=== PATIENT | female | born 1950 | race Caucasian/White ===

== ENCOUNTER 2017-12-30 10:52 | Inpatient (IN) | payer MEDICARE, OTHER ==
[2017-12-30 11:19] VITALS: BMI 22.6
--- NOTE | 2017-12-30 13:17 | HP ---
COWS - Scale Resting Pulse: 1= [place] 81-100 Sweatin= Chills/Flushing Restless Observation: 3= Extraneous Movement Pupil Size: 1= Pupils >than Normal Bone or Joint Aches: 2= Severe Diffuse Aches Runny Nose/ Eye Tearin= Runny Nose/Eyes GI Upset > 30mins: 2= Nausea/Diarrhea Tremor Observation: 2= Slight Tremor Visible Yawning Observation: 1= 1-2x During Session Anxiety or Irritability: 2=Irritable/Anxious Goose Flesh Skin: 0=Smooth Skin COWS Score: 17 Admission ROS S - HPI Chief Complaint: i need help to stop using heroin Allergies/Adverse Reactions: Allergies Allergy/AdvReac Type Severity Reaction Status Date / Time No Known Allergies Allergy Verified 12/30/17 11:42 History of Present Illness: this 67 years old female with heroin dependence,seeking detox,withdrawal symptom ,last treatment 15 years ago type 2 dm on med depression nicotine dependence no significant period of sobriety need help to stop using heroin Exam Limitations: No Limitations - Ebola screening Have you traveled outside of the country in the last 21 days: No Have you had contact with anyone from an Ebola affected area: No Have you been sick,other than usual withdrawal symptoms: No Do you have a fever: No - Review of Systems Constitutional: Chills, Loss of Appetite, Malaise, Night Sweats, Changes in sleep, Weakness, Unintentional Wgt. Loss EENT: reports: Tearing, Nose Congestion Respiratory: reports: No Symptoms reported Cardiac: reports: No Symptoms Reported GI: reports: Diarrhea, Nausea, Vomiting, Abdominal cramping : reports: No Symptoms Reported Musculoskeletal: reports: Back Pain, Joint Pain, Muscle Pain Integumentary: reports: Dryness Neuro: reports: Headache, Tremors Endocrine: reports: No Symptoms Reported Hematology: reports: No Symptoms Reported Psychiatric: reports: No Sypmtoms Reported, Judgement Intact, Mood/Affect Appropiate, Depressed Patient History - Patient Medical History Hx Anemia: No Hx Asthma: No Hx Chronic Obstructive Pulmonary Disease (COPD): No Hx Cancer: No Hx Cardiac Disorders: No Hx Congestive Heart Failure: No Hx Hypertension: Yes (on med) Hx Hypercholesterolemia: Yes Hx Pacemaker: No HX Cerebrovascular Accident: No Hx Seizures: No Hx Dementia: No Hx Diabetes: Yes (on metformin) Hx Gastrointestinal Disorders: No Hx Liver Disease: No Hx Genitourinary Disorders: No Hx Sexually Transmitted Disorders: No Hx Renal Disease (ESRD): No Hx Thyroid Disease: No Hx Human Immunodeficiency Virus (HIV): No (2002 negative) Hx Hepatitis C: No Hx Depression: No Hx Suicide Attempt: No Hx Bipolar Disorder: No Hx Schizophrenia: No Other Medical History: no suicidalo,no homicidal - Patient Surgical History Past Surgical History: No Hx Neurologic Surgery: No Hx Cataract Extraction: No Hx Cardiac Surgery: No Hx Lung Surgery: No Hx Breast Surgery: No Hx Breast Biopsy: No Hx Abdominal Surgery: No Hx Appendectomy: No Hx Cholecystectomy: No Hx Genitourinary Surgery: No Hx Section: No Hx Orthopedic Surgery: No Anesthesia Reaction: No - PPD History Previous Implant?: Yes Documented Results: Positive w/o proof Implanted On Prior [facility] Admission?: No PPD to be Administered?: No - Reproductive History Patient is a Female of Child Bearing Age (11 -55 yrs old): No Last Menstrual Period: 12/28/91 Patient : No - Smoking Cessation Smoking history: Current every day smoker Have you smoked in the past 12 months: Yes Aproximately how many cigarettes per day: 20 Cigars Per Day: 0 Hx Chewing Tobacco Use: No Initiated information on smoking cessation: Yes 'Breaking Loose' booklet given: 12/30/17 - Substance & Tx. History Hx Alcohol Use: No Hx Substance Use: Yes Substance Use Type: Heroin Hx Substance Use Treatment: Yes (2002 unknown facility) - Substances Abused [facility] Route: Inhalation Frequency: Daily Amount used: 4-5 BAGS Age of first use: 64 Date of Last Use: 12/30/17 Family Disease History - Family Disease History Family History: Denies Family Disease History: Heart Disease: Father (), Other: Father, Mother ( copd) Admission Physical Exam BHS - Vital Signs Vital Signs: Vital Signs - 24 hr 12/30/17 11:17 Temperature 98.5 F Pulse Rate 81 Respiratory 19 Rate Blood Pressure 149/80 - Physical General Appearance: Yes: Moderate Distress, Tremorous, Irritable, Sweating, Anxious HEENTM: Yes: Normal ENT Inspection, SALO, Pharynx Normal Respiratory: Yes: Lungs Clear, Normal Breath Sounds, No Respiratory Distress Neck: Yes: Within Normal Limits, Supple, Trachea in good position Breast: Yes: Breast Exam Deferred Cardiology: Yes: Within Normal Limits, Regular Rhythm, Regular Rate, S1, S2 Abdominal: Yes: Normal Bowel Sounds, Non Tender, Soft, Organomegaly Genitourinary: Yes: Within Normal Limits Back: Yes: Muscle Spasm Extremities: Yes: Within Normal Limits, Normal Range of Motion, Tremors Neurological: Yes: direct care specialist II-XII NML intact, Fully Oriented, Alert, Motor Strength 5/5 Integumentary: Yes: Dry Lymphatic: Yes: Within Normal Limits - Diagnostic (1) Opioid dependence with withdrawal Current Visit: Yes Status: Acute (2) Essential hypertension Current Visit: Yes Status: Acute (3) DM2 (diabetes mellitus, type 2) Current Visit: Yes Status: Acute (4) Nicotine dependence Current Visit: Yes Status: Acute (5) Positive PPD Current Visit: Yes Status: Acute (6) Hypercholesteremia Current Visit: Yes Status: Acute Cleared for Admission [facility] - Detox or Rehab [facility] Level of Care: Medically Managed Detox Regimen/Protocol: Methadone [facility] Breath Alcohol Content Breath Alcohol Content: 0 Urine Pregancy Test - Result Urine Test Results: Negative- NO Line Present Urine Drug Screen - Results Drug Screen Negative: No Urine Drug Screen Results: OPI-Opiates, MTD-Methadone, OXY-Oxycodone
[2017-12-30] MEDS ORDERED: guaiFENesin/D-METHORPHAN HB 10 ML UNIT-DOSE CUPS PO PRN (13:29)
[2017-12-30] MEDS ORDERED: MAGNESIUM CITRATE 300 ML BOTTLE PO PRN (13:29)
[2017-12-30] MEDS ORDERED: hydrOXYzine PAMOATE 25 MG CAPSULE (FP) PO PRN (13:29)
[2017-12-30] MEDS ORDERED: P-EPHED 60MG/TRIPROLIDI 2.5MG TABLET PO PRN (13:29)
[2017-12-30] MEDS ORDERED: LOPERAMIDE HCL 2 MG CAPSULE PO PRN (13:29)
[2017-12-30] MEDS ORDERED: MENTHOL/PHENOL 1 EACH UD MM PRN (13:29)
[2017-12-30] MEDS ORDERED: ACETAMINOPHEN 325 MG TABLET (FP) PO PRN (13:29)
[2017-12-30] MEDS ORDERED: MAG HYDROX/AL HYDROX/SIMETH 30 ML UNIT-DOSE CUP PO PRN (13:29)
[2017-12-30] MEDS ORDERED: METHADONE HCL 10 MG TABLET (FOR DETOX USE ONLY) PO ONE ×2 (14:45→23:00)
[2017-12-30] MEDS: NICOTINE 21 MG/24 HOURS TOPICAL PATCH TD SCH (14:51)
[2017-12-30] MEDS ORDERED: INSULIN (NOVOLOG) ASPART 100 UNITS/ML 10ML VIAL ONE ×2 (17:07→22:03)
[2017-12-30] MEDS: metFORMIN HCL 500 MG TABLET (FP) PO SCH (17:49)
[2017-12-30] MEDS: INSULIN SLIDING SCALE (NOVOLOG) 1 VIAL SQ SCH ×2 (17:50→22:02)
[2017-12-30] MEDS ORDERED: MELATONIN 5 MG TABLETS PO PRN (22:00)
[2017-12-30] MEDS: THIAMINE HCL 100 MG TABLET (FP) PO SCH (22:05)
[2017-12-30] MEDS: ATORVASTATIN CA 10 MG TABLET (FP) PO SCH (22:05)
[2017-12-31] MEDS: diazePAM 5 MG TABLET PO PRN ×2 (05:49→22:35)
[2017-12-31] MEDS: metFORMIN HCL 500 MG TABLET (FP) PO SCH ×2 (06:24→16:39)
[2017-12-31] MEDS: INSULIN SLIDING SCALE (NOVOLOG) 1 VIAL SQ SCH ×4 (08:16→22:36)
[2017-12-31 10:00] LABS: HEMATOCRIT 42.9 % (32.4-45.2); HEMOGLOBIN 14.2 GM/dL (10.7-15.3); MCH 31.1 pg (25.7-33.7); MCHC 33.1 g/dl (32.0-36.0); MEAN CELL VOLUME 93.9 fl (80-96); MEAN PLT VOLUME 10.8 fl (7.5-11.1); PLATELET COUNT 160 K/MM3 (134-434); RBC 4.57 M/mm3 (3.60-5.2); RDW 12.6 % (11.6-15.6); WHITE BLOOD COUNT 6.9 K/mm3 (4.0-10.0)
[2017-12-31] MEDS ORDERED: METHADONE HCL 10 MG TABLET (FOR DETOX USE ONLY) PO ONE (10:00)
[2017-12-31] MEDS: PRENATAL VITAMINS W/ FOLIC ACID TABLET (FP) PO SCH (10:28)
[2017-12-31] MEDS: amLODIPine BESYLATE 10 MG TABLET (FP) PO SCH (10:28)
[2017-12-31] MEDS: LOSARTAN POTASSIUM 50 MG TABLET (FP) PO SCH (10:28)
[2017-12-31] MEDS: NICOTINE 21 MG/24 HOURS TOPICAL PATCH TD SCH (10:29)
[2017-12-31] MEDS: MAGNESIUM HYDROX 2400MG/30ML ORAL SUSPENSION 30 ML CUP PO PRN (10:31)
[2017-12-31 10:50] LABS: ALBUMIN 3.7 g/dl (3.4-5.0); ALK PHOS 107 U/L (45-117); ANION GAP 11 MMOL/L (8-16); BILIRUBIN,TOTAL 0.3 mg/dL (0.2-1); BLOOD UREA NITROGEN 14 mg/dL (7-18); CALCIUM 9.2 mg/dL (8.5-10.1); CHLORIDE 103 mmol/L (98-107); CO2 24 mmol/L (21-32); CREATININE 0.7 mg/dL (0.55-1.3); POTASSIUM 4.4 mmol/L (3.5-5.1); SGOT/AST 14 U/L (15-37); SGPT/ALT 27 U/L (13-61); SODIUM 138 mmol/L (136-145)
[2017-12-31 10:51] LABS: GLUCOSE,RANDOM 312 mg/dL (74-106)
--- NOTE | 2017-12-31 11:44 | EKG ---
Test Reason : Blood Pressure : / mmHG Vent. Rate : 069 BPM Atrial Rate : 069 BPM P-R Int : 158 ms QRS Dur : 080 ms QT Int : 382 ms P-R-T Axes : 063 074 065 degrees QTc Int : 409 ms NORMAL SINUS RHYTHM NORMAL ECG NO PREVIOUS ECGS AVAILABLE Confirmed by KAMLA JAIMES, TAMMY ([id number]) on 12/31/2017 11:44:28 AM Referred By: Confirmed By:TAMMY CASON MD
[2017-12-31] MEDS ORDERED: INSULIN (NOVOLOG) ASPART 100 UNITS/ML 10ML VIAL ONE ×2 (11:52→22:06)
[2017-12-31] MEDS ORDERED: FLU VACCINE QUAD 60 MCG/0.5 ML (MDV 18-19) IM ONE (12:00)
[2017-12-31] MEDS ORDERED: PNEUMOC 13-VAL CONJ-DIP CRM/PF 0.5 ML DISP.SYRIN IM ONE (12:00)
--- NOTE | 2017-12-31 18:36 | PN ---
BHS COWS - Scale Resting Pulse: 0= [place] 80 or Below Sweatin= Chills/Flushing Restless Observation: 1= Difficult to Sit Still Pupil Size: 1= Pupils >than Normal Bone or Joint Aches: 2= Severe Diffuse Aches Runny Nose/ Eye Tearin= Nasal Congestion GI Upset > 30mins: 2= Nausea/Diarrhea Tremor Observation of Outstretched Hands: 1= Tremor [place], Not Seen Yawning Observation: 2= >3x During Session Anxiety or Irritability: 2=Irritable/Anxious Goose Flesh Skin: 0=Smooth Skin COWS Score: 13 S Progress Note (SOAP) Subjective: sweat back pain muscle ache Objective: 12/31/17 18:35 Vital Signs Temperature 99 F 12/31/17 17:34 Pulse Rate 84 12/31/17 17:34 Respiratory Rate 18 12/31/17 17:34 Blood Pressure 100/60 12/31/17 17:34 O2 Sat by Pulse Oximetry (%) Laboratory Last Values WBC 6.9 K/mm3 (4.0-10.0) 12/31/17 05:45 RBC 4.57 M/mm3 (3.60-5.2) 12/31/17 05:45 Hgb 14.2 GM/dL (10.7-15.3) 12/31/17 05:45 Hct 42.9 % (32.4-45.2) 12/31/17 05:45 MCV 93.9 fl (80-96) 12/31/17 05:45 MCH 31.1 pg (25.7-33.7) 12/31/17 05:45 MCHC 33.1 g/dl (32.0-36.0) 12/31/17 05:45 RDW 12.6 % (11.6-15.6) 12/31/17 05:45 Plt Count 160 K/MM3 (134-434) 12/31/17 05:45 MPV 10.8 fl (7.5-11.1) 12/31/17 05:45 Sodium 138 mmol/L (136-145) 12/31/17 05:45 Potassium 4.4 mmol/L (3.5-5.1) 12/31/17 05:45 Chloride 103 mmol/L (98-107) 12/31/17 05:45 Carbon Dioxide 24 mmol/L (21-32) 12/31/17 05:45 Anion Gap 11 MMOL/L (8-16) 12/31/17 05:45 BUN 14 mg/dL (7-18) 12/31/17 05:45 Creatinine 0.7 mg/dL (0.55-1.3) 12/31/17 05:45 Creat Clearance w eGFR > 60 (>60) 12/31/17 05:45 POC Glucometer 397 UNITS (80-120) 12/31/17 11:50 Random Glucose 312 mg/dL (74-106) H* 12/31/17 05:45 Calcium 9.2 mg/dL (8.5-10.1) 12/31/17 05:45 Total Bilirubin 0.3 mg/dL (0.2-1) 12/31/17 05:45 AST 14 U/L (15-37) L 12/31/17 05:45 ALT 27 U/L (13-61) 12/31/17 05:45 Alkaline Phosphatase 107 U/L (45-117) 12/31/17 05:45 Total Protein 7.0 g/dl (6.4-8.2) 12/31/17 05:45 Albumin 3.7 g/dl (3.4-5.0) 12/31/17 05:45 RPR Titer Nonreactive (NONREACTIVE) 12/31/17 05:45 lab noted diabetes Assessment: 12/31/17 18:35 withdrawal sx Plan: continue detox bgm with insulin coverage
[2017-12-31] MEDS: ATORVASTATIN CA 10 MG TABLET (FP) PO SCH (22:35)
[2017-12-31] MEDS: THIAMINE HCL 100 MG TABLET (FP) PO SCH (22:35)
[2018-01-01] MEDS ORDERED: INSULIN (NOVOLOG) ASPART 100 UNITS/ML 10ML VIAL ONE ×4 (06:19→22:28)
[2018-01-01] MEDS: metFORMIN HCL 500 MG TABLET (FP) PO SCH ×2 (06:20→16:59)
[2018-01-01] MEDS: diazePAM 5 MG TABLET PO PRN ×3 (06:20→22:23)
[2018-01-01] MEDS: INSULIN SLIDING SCALE (NOVOLOG) 1 VIAL SQ SCH ×4 (07:20→22:29)
[2018-01-01] MEDS ORDERED: METHADONE HCL 5 MG TABLET (FOR DETOX USE ONLY) PO ONE (10:00)
[2018-01-01] MEDS: PRENATAL VITAMINS W/ FOLIC ACID TABLET (FP) PO SCH (10:13)
[2018-01-01] MEDS: LOSARTAN POTASSIUM 50 MG TABLET (FP) PO SCH (10:13)
[2018-01-01] MEDS: amLODIPine BESYLATE 10 MG TABLET (FP) PO SCH (10:14)
[2018-01-01] MEDS: MAGNESIUM HYDROX 2400MG/30ML ORAL SUSPENSION 30 ML CUP PO PRN (10:17)
[2018-01-01] MEDS: NICOTINE 21 MG/24 HOURS TOPICAL PATCH TD SCH (10:17)
--- NOTE | 2018-01-01 11:17 | PN ---
BHS COWS - Scale Resting Pulse: 1= [place] 81-100 Sweatin= Chills/Flushing Restless Observation: 1= Difficult to Sit Still Pupil Size: 0= Normal to Room Light Bone or Joint Aches: 1= Mild Discomfort Runny Nose/ Eye Tearin= Runny Nose/Eyes GI Upset > 30mins: 1= Stomach Cramp Tremor Observation of Outstretched Hands: 1= Tremor [place], Not Seen Yawning Observation: 2= >3x During Session Anxiety or Irritability: 2=Irritable/Anxious Goose Flesh Skin: 0=Smooth Skin COWS Score: 12 BHS Progress Note (SOAP) Subjective: c/o interrupted sleep, fatigue, anxious Objective: 01/01/18 11:17 Vital Signs Temperature 98.8 F 01/01/18 09:15 Pulse Rate 85 01/01/18 09:15 Respiratory Rate 18 01/01/18 09:15 Blood Pressure 117/59 L 01/01/18 09:15 O2 Sat by Pulse Oximetry (%) Laboratory Last Values WBC 6.9 K/mm3 (4.0-10.0) 12/31/17 05:45 RBC 4.57 M/mm3 (3.60-5.2) 12/31/17 05:45 Hgb 14.2 GM/dL (10.7-15.3) 12/31/17 05:45 Hct 42.9 % (32.4-45.2) 12/31/17 05:45 MCV 93.9 fl (80-96) 12/31/17 05:45 MCH 31.1 pg (25.7-33.7) 12/31/17 05:45 MCHC 33.1 g/dl (32.0-36.0) 12/31/17 05:45 RDW 12.6 % (11.6-15.6) 12/31/17 05:45 Plt Count 160 K/MM3 (134-434) 12/31/17 05:45 MPV 10.8 fl (7.5-11.1) 12/31/17 05:45 Sodium 138 mmol/L (136-145) 12/31/17 05:45 Potassium 4.4 mmol/L (3.5-5.1) 12/31/17 05:45 Chloride 103 mmol/L (98-107) 12/31/17 05:45 Carbon Dioxide 24 mmol/L (21-32) 12/31/17 05:45 Anion Gap 11 MMOL/L (8-16) 12/31/17 05:45 BUN 14 mg/dL (7-18) 12/31/17 05:45 Creatinine 0.7 mg/dL (0.55-1.3) 12/31/17 05:45 Creat Clearance w eGFR > 60 (>60) 12/31/17 05:45 POC Glucometer 163 UNITS (80-120) 01/01/18 06:16 Random Glucose 312 mg/dL (74-106) H* 12/31/17 05:45 Calcium 9.2 mg/dL (8.5-10.1) 12/31/17 05:45 Total Bilirubin 0.3 mg/dL (0.2-1) 12/31/17 05:45 AST 14 U/L (15-37) L 12/31/17 05:45 ALT 27 U/L (13-61) 12/31/17 05:45 Alkaline Phosphatase 107 U/L (45-117) 12/31/17 05:45 Total Protein 7.0 g/dl (6.4-8.2) 12/31/17 05:45 Albumin 3.7 g/dl (3.4-5.0) 12/31/17 05:45 RPR Titer Nonreactive (NONREACTIVE) 12/31/17 05:45 Aox3 no distress no adventitious breath sounds ambulating in the unit independently Assessment: 01/01/18 14:31 withdrawal sx Plan: increase po fluids continue detox continue to monitor
[2018-01-01] MEDS: THIAMINE HCL 100 MG TABLET (FP) PO SCH (22:23)
[2018-01-01] MEDS: ATORVASTATIN CA 10 MG TABLET (FP) PO SCH (22:23)
[2018-01-02] MEDS: diazePAM 5 MG TABLET PO PRN (05:16)
[2018-01-02] MEDS: IBUPROFEN 400 MG TABLET (FP) PO PRN (05:17)
[2018-01-02] MEDS: metFORMIN HCL 500 MG TABLET (FP) PO SCH ×2 (06:15→16:49)
[2018-01-02] MEDS: INSULIN SLIDING SCALE (NOVOLOG) 1 VIAL SQ SCH ×4 (07:15→22:10)
[2018-01-02] MEDS ORDERED: METHADONE HCL 5 MG TABLET (FOR DETOX USE ONLY) PO ONE (10:00)
[2018-01-02] MEDS: LOSARTAN POTASSIUM 50 MG TABLET (FP) PO SCH (10:37)
[2018-01-02] MEDS: amLODIPine BESYLATE 10 MG TABLET (FP) PO SCH (10:37)
[2018-01-02] MEDS: PRENATAL VITAMINS W/ FOLIC ACID TABLET (FP) PO SCH (10:37)
[2018-01-02] MEDS: NICOTINE 21 MG/24 HOURS TOPICAL PATCH TD SCH (10:39)
[2018-01-02] MEDS ORDERED: INSULIN (NOVOLOG) ASPART 100 UNITS/ML 10ML VIAL ONE ×3 (11:51→22:47)
--- NOTE | 2018-01-02 12:07 | PN ---
BHS Progress Note (SOAP) Subjective: back pain sweats Objective: 01/02/18 12:06 Vital Signs Temperature 97.7 F 01/02/18 09:34 Pulse Rate 83 01/02/18 09:34 Respiratory Rate 18 01/02/18 09:34 Blood Pressure 123/56 L 01/02/18 09:34 O2 Sat by Pulse Oximetry (%) aaox3 ambulating no acute distress Assessment: 01/02/18 12:06 mild withdrawal sx Plan: continue detox d/c in am rx for motrin sent to pharmacy
[2018-01-02] MEDS: ATORVASTATIN CA 10 MG TABLET (FP) PO SCH (22:08)
[2018-01-02] MEDS: THIAMINE HCL 100 MG TABLET (FP) PO SCH (22:08)
[2018-01-02 22:53] VITALS: TEMP 98.1
[2018-01-03] MEDS: metFORMIN HCL 500 MG TABLET (FP) PO SCH (06:03)
[2018-01-03] MEDS ORDERED: INSULIN (NOVOLOG) ASPART 100 UNITS/ML 10ML VIAL ONE (07:19)
[2018-01-03] MEDS: IBUPROFEN 400 MG TABLET (FP) PO PRN (07:30)
[2018-01-03] MEDS: INSULIN SLIDING SCALE (NOVOLOG) 1 VIAL SQ SCH (07:32)
[2018-01-03 07:37] VITALS: BP 111/70; PULSE 89
--- NOTE | 2018-01-03 09:05 | DS ---
[facility] Detox Discharge Summary Admission Date: 12/30/17 Discharge Date: 01/03/18 - History Present History: Opioid Dependence Additional Comments: Patient medically stable. Patient to follow up with primary medical provider within a week. Patient - Physical Exam Results Vital Signs: Vital Signs Temperature 98.1 F 01/03/18 07:36 Pulse Rate 89 01/03/18 07:36 Respiratory Rate 18 01/03/18 07:36 Blood Pressure 111/70 01/03/18 07:36 O2 Sat by Pulse Oximetry (%) Pertinent Admission Physical Exam Findings: Laboratory Last Values WBC 6.9 K/mm3 (4.0-10.0) 12/31/17 05:45 RBC 4.57 M/mm3 (3.60-5.2) 12/31/17 05:45 Hgb 14.2 GM/dL (10.7-15.3) 12/31/17 05:45 Hct 42.9 % (32.4-45.2) 12/31/17 05:45 MCV 93.9 fl (80-96) 12/31/17 05:45 MCH 31.1 pg (25.7-33.7) 12/31/17 05:45 MCHC 33.1 g/dl (32.0-36.0) 12/31/17 05:45 RDW 12.6 % (11.6-15.6) 12/31/17 05:45 Plt Count 160 K/MM3 (134-434) 12/31/17 05:45 MPV 10.8 fl (7.5-11.1) 12/31/17 05:45 Sodium 138 mmol/L (136-145) 12/31/17 05:45 Potassium 4.4 mmol/L (3.5-5.1) 12/31/17 05:45 Chloride 103 mmol/L (98-107) 12/31/17 05:45 Carbon Dioxide 24 mmol/L (21-32) 12/31/17 05:45 Anion Gap 11 MMOL/L (8-16) 12/31/17 05:45 BUN 14 mg/dL (7-18) 12/31/17 05:45 Creatinine 0.7 mg/dL (0.55-1.3) 12/31/17 05:45 Creat Clearance w eGFR > 60 (>60) 12/31/17 05:45 POC Glucometer 256 UNITS (80-120) 01/03/18 06:02 Random Glucose 312 mg/dL (74-106) H* 12/31/17 05:45 Calcium 9.2 mg/dL (8.5-10.1) 12/31/17 05:45 Total Bilirubin 0.3 mg/dL (0.2-1) 12/31/17 05:45 AST 14 U/L (15-37) L 12/31/17 05:45 ALT 27 U/L (13-61) 12/31/17 05:45 Alkaline Phosphatase 107 U/L (45-117) 12/31/17 05:45 Total Protein 7.0 g/dl (6.4-8.2) 12/31/17 05:45 Albumin 3.7 g/dl (3.4-5.0) 12/31/17 05:45 RPR Titer Nonreactive (NONREACTIVE) 12/31/17 05:45 - Treatment Hospital Course: Detox Protocol Followed, Detoxed Safely, Responded well, Discharged Condition Good, Rehab Referral Accepted Patient has Accepted a Rehab Referral to: out patient services - Medication Discharge Medications: Ambulatory Orders Amlodipine Besylate 10 mg PO DAILY 12/30/17 Losartan Potassium 100 mg PO DAILY 12/30/17 Simvastatin 10 mg PO DAILY 12/30/17 metFORMIN HCL [Metformin HCl] 500 mg PO BID 12/30/17 Fenoprofen Calcium [Profeno] 600 mg PO PRN #30 tablet 01/02/18 Amlodipine Besylate [Norvasc -] 10 mg PO DAILY #30 tablet 01/03/18 Losartan Potassium [Cozaar -] 100 mg PO DAILY #30 tablet 01/03/18 metFORMIN HCL [Glucophage -] 500 mg PO BID@0700,1630 #30 tablet 01/03/18 - Diagnosis (1) DM2 (diabetes mellitus, type 2) Current Visit: Yes Status: Chronic Qualifiers: Diabetes mellitus care 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
[2018-01-03] MEDS ORDERED: METHADONE HCL 10 MG TABLET (FOR DETOX USE ONLY) PO ONE (10:00)
[2018-01-03 11:22] LABS: URINE APPEARANCE CLEAR; URINE BILIRUBIN NEGATIVE (<2.0 mg/dL); URINE COLOR STRAW; URINE GLUCOSE (UA) 1+ (NEGATIVE); URINE KETONE NEGATIVE (NEGATIVE); URINE LEUK ESTERASE NEGATIVE (NEGATIVE); URINE NITRITE NEGATIVE (NEGATIVE); URINE PROTEIN NEGATIVE (NEGATIVE); URINE UROBILINOGEN NEGATIVE mg/dL (0.2-1.0)
[2018-01-04] MEDS ORDERED: METHADONE HCL 5 MG TABLET (FOR DETOX USE ONLY) PO ONE (06:00)
== END 2018-01-03 09:10 | disposition home or self-care (01) | DRG 897 ==
LOC: YASAS 10:52 → Y6N 13:49
PROC: HZ2ZZZZ Detoxification Services for Substance Abuse Treatment (ICD-10-PCS; principal; 2017-12-30)
DX: F11.23 Opioid dependence with withdrawal (principal); F17.210 Nicotine dependence, cigarettes, uncomplicated; I10 Essential (primary) hypertension; E11.9 Type 2 diabetes mellitus without complications; E78.00 Pure hypercholesterolemia, unspecified; R76.11 Nonspecific reaction to tuberculin skin test without active tuberculosis
CPT/HCPCS: 36415; 71046-TC-FY; 80053; 81003; 82962; 85027; 86593; 90688; 93005; 93010; G0008

== ENCOUNTER 2022-01-01 13:34 | Inpatient (IN) | payer MEDICARE, OTHER ==
[2022-01-01 15:27] VITALS: BMI 27.0
[2022-01-01] MEDS ORDERED: BISMUTH SUBSALICYLATE 524 MG/30 ML PO PRN (15:53)
[2022-01-01] MEDS ORDERED: ACETAMINOPHEN 325 MG TABLET (FP) PO PRN ×2 (15:53)
[2022-01-01] MEDS ORDERED: DICYCLOMINE HCL 10 MG CAPSULE PO PRN (15:53)
[2022-01-01] MEDS ORDERED: LOPERAMIDE HCL 2 MG CAPSULE PO PRN (15:53)
[2022-01-01] MEDS ORDERED: MAG HYDROX/AL HYDROX/SIMETH 30 ML UNIT-DOSE CUP PO PRN (15:53)
[2022-01-01] MEDS ORDERED: NALOXONE HCL (KLOXXADO) 8 MG SPRAY NS PRN (15:53)
[2022-01-01] MEDS ORDERED: IBUPROFEN 400 MG TABLET (FP) PO PRN (15:53)
[2022-01-01] MEDS ORDERED: BUPRENORPHINE HCL 150 MCG, BUPRENORPHINE HCL 75 MCG BC ONE (15:53)
[2022-01-01] MEDS ORDERED: BUPRENORPHINE HCL 150 MCG, BUPRENORPHINE HCL 75 MCG BC PRN (15:53)
[2022-01-01] MEDS ORDERED: BENZOCAINE/MENTHOL (CHLORASEPTIC ) LOZENGE MM PRN (15:53)
[2022-01-01] MEDS ORDERED: cloNIDine HCL 0.1 MG TABLET PO ONE (15:53)
[2022-01-01] MEDS ORDERED: MAGNESIUM CITRATE 300 ML BOTTLE PO PRN (15:53)
[2022-01-01] MEDS ORDERED: ONDANSETRON *ODT* 4 MG TABLET SL PRN (15:53)
[2022-01-01] MEDS ORDERED: NICOTINE 10 MG CARTRIDGE (INHALER) IH PRN (15:53)
[2022-01-01] MEDS: PRENATAL VITAMINS W/ FOLIC ACID TABLET (FP) PO SCH (17:18)
[2022-01-01] MEDS: hydrOXYzine PAMOATE 25 MG CAPSULE (FP) PO SCH ×2 (18:24→22:31)
[2022-01-01] MEDS: MELATONIN 5 MG TABLETS PO SCH (22:31)
[2022-01-01] MEDS: ROSUVASTATIN CA 10 MG TABLET PO SCH (22:31)
[2022-01-01] MEDS: THIAMINE HCL 100 MG TABLET (FP) PO SCH (22:31)
[2022-01-02] MEDS ORDERED: BUPRENORPHINE HCL 150 MCG, BUPRENORPHINE HCL 75 MCG BC PRN
[2022-01-02] MEDS: BUPRENORPHINE HCL 150 MCG, BUPRENORPHINE HCL 75 MCG BC SCH ×2 (05:15→18:34)
[2022-01-02] MEDS: hydrOXYzine PAMOATE 25 MG CAPSULE (FP) PO SCH ×5 (05:16→22:18)
[2022-01-02] MEDS: metFORMIN HCL 500 MG TABLET (FP) PO SCH ×2 (07:05→17:35)
[2022-01-02] MEDS: diazePAM 5 MG TABLET PO PRN (10:10)
[2022-01-02] MEDS: NICOTINE 14 MG/24 HOURS TOPICAL PATCH TD SCH (10:11)
[2022-01-02] MEDS: PRENATAL VITAMINS W/ FOLIC ACID TABLET (FP) PO SCH (10:12)
[2022-01-02] MEDS: amLODIPine BESYLATE 5 MG TABLET (FP) PO SCH (10:12)
[2022-01-02] MEDS: MAGNESIUM HYDROX 2400MG/30ML ORAL SUSPENSION 30 ML CUP PO PRN (10:13)
[2022-01-02 10:41] LABS: HEMATOCRIT 34.9 % (32.4-45.2); HEMOGLOBIN 11.8 GM/dL (10.7-15.3); MCH 31.7 pg (25.7-33.7); MCHC 33.9 g/dl (32.0-36.0); MEAN CELL VOLUME 93.6 fl (80-96); MEAN PLT VOLUME 9.9 fl (7.5-11.1); PLATELET COUNT 177 10^3/uL (134-434); RBC 3.73 M/mm3 (3.60-5.2); RDW 13.1 % (11.6-15.6); WHITE BLOOD COUNT 5.7 K/mm3 (4.0-10.0)
[2022-01-02 10:42] LABS: BLOOD UREA NITROGEN 11.7 mg/dL (7-18); CALCIUM 9.4 mg/dL (8.5-10.1)
[2022-01-02 10:46] LABS: CREATININE 0.6 mg/dL (0.55-1.3)
[2022-01-02 10:47] LABS: BILIRUBIN,TOTAL 0.2 mg/dL (0.2-1); TOT PROT 6.1 g/dl (6.4-8.2)
[2022-01-02] MEDS ORDERED: INSULIN SLIDING SCALE (NOVOLOG) 1 VIAL SQ SCH (11:00)
[2022-01-02] MEDS: INSULIN SLIDING SCALE (NOVOLOG) 1 VIAL SQ SCH ×2 (12:45→17:35)
[2022-01-02] MEDS: IBUPROFEN 600 MG TABLET (FP) PO PRN (12:53)
[2022-01-02] MEDS: METHOCARBAMOL 500 MG TABLET PO PRN ×2 (12:53→22:17)
[2022-01-02] MEDS: ROSUVASTATIN CA 10 MG TABLET PO SCH (22:16)
[2022-01-02] MEDS: THIAMINE HCL 100 MG TABLET (FP) PO SCH (22:16)
[2022-01-02] MEDS: MELATONIN 5 MG TABLETS PO SCH (22:16)
[2022-01-03] MEDS: metFORMIN HCL 500 MG TABLET (FP) PO SCH ×2 (06:05→17:49)
[2022-01-03] MEDS: BUPRENORPHINE HCL 450 MCG FILM BC SCH ×2 (06:05→17:50)
[2022-01-03] MEDS: hydrOXYzine PAMOATE 25 MG CAPSULE (FP) PO SCH ×5 (06:05→22:16)
[2022-01-03] MEDS: INSULIN SLIDING SCALE (NOVOLOG) 1 VIAL SQ SCH ×3 (06:07→17:51)
[2022-01-03] MEDS: amLODIPine BESYLATE 5 MG TABLET (FP) PO SCH (09:55)
[2022-01-03] MEDS: PRENATAL VITAMINS W/ FOLIC ACID TABLET (FP) PO SCH (09:55)
[2022-01-03] MEDS: diazePAM 5 MG TABLET PO PRN (09:55)
[2022-01-03] MEDS: METHOCARBAMOL 500 MG TABLET PO PRN ×2 (09:56→22:18)
[2022-01-03] MEDS: NICOTINE 14 MG/24 HOURS TOPICAL PATCH TD SCH (10:20)
[2022-01-03] MEDS: cloNIDine HCL 0.1 MG TABLET PO PRN (13:45)
[2022-01-03 18:28] LABS: HIV INTERPRETATION NEGATIVE (NEGATIVE)
[2022-01-03] MEDS: THIAMINE HCL 100 MG TABLET (FP) PO SCH (22:16)
[2022-01-03] MEDS: ROSUVASTATIN CA 10 MG TABLET PO SCH (22:16)
[2022-01-03] MEDS: MELATONIN 5 MG TABLETS PO SCH (22:16)
[2022-01-03] MEDS: MAGNESIUM HYDROX 2400MG/30ML ORAL SUSPENSION 30 ML CUP PO PRN (22:19)
[2022-01-04] MEDS: BUPRENORPHINE/NALOXONE 4 MG/1 MG FILM PACKET SL SCH ×2 (06:52→17:57)
[2022-01-04] MEDS: metFORMIN HCL 500 MG TABLET (FP) PO SCH ×2 (06:53→17:56)
[2022-01-04] MEDS: hydrOXYzine PAMOATE 25 MG CAPSULE (FP) PO SCH ×5 (06:53→22:17)
[2022-01-04] MEDS: cloNIDine HCL 0.1 MG TABLET PO PRN ×2 (07:53→14:26)
[2022-01-04] MEDS: METHOCARBAMOL 500 MG TABLET PO PRN (07:53)
[2022-01-04] MEDS: IBUPROFEN 600 MG TABLET (FP) PO PRN (07:53)
[2022-01-04] MEDS: INSULIN SLIDING SCALE (NOVOLOG) 1 VIAL SQ SCH ×3 (07:54→17:55)
[2022-01-04] MEDS: PRENATAL VITAMINS W/ FOLIC ACID TABLET (FP) PO SCH (10:27)
[2022-01-04] MEDS: diazePAM 5 MG TABLET PO PRN ×3 (10:27→22:19)
[2022-01-04] MEDS: amLODIPine BESYLATE 5 MG TABLET (FP) PO SCH (10:27)
[2022-01-04] MEDS: NICOTINE 14 MG/24 HOURS TOPICAL PATCH TD SCH (10:50)
[2022-01-04] MEDS: MELATONIN 5 MG TABLETS PO SCH (22:17)
[2022-01-04] MEDS: THIAMINE HCL 100 MG TABLET (FP) PO SCH (22:17)
[2022-01-04] MEDS: ROSUVASTATIN CA 10 MG TABLET PO SCH (22:17)
[2022-01-05] MEDS ORDERED: BUPRENORPHINE/NALOXONE 8 MG/2 MG FILM PACKET SL ONE (06:00)
[2022-01-05] MEDS: hydrOXYzine PAMOATE 25 MG CAPSULE (FP) PO SCH ×2 (06:00→09:50)
[2022-01-05] MEDS: metFORMIN HCL 500 MG TABLET (FP) PO SCH (06:01)
[2022-01-05] MEDS: INSULIN SLIDING SCALE (NOVOLOG) 1 VIAL SQ SCH (06:51)
[2022-01-05 09:12] VITALS: BP 151/92; PULSE 67; RESP 18; TEMP 98.3
[2022-01-05] MEDS: amLODIPine BESYLATE 5 MG TABLET (FP) PO SCH (09:50)
[2022-01-05] MEDS: NICOTINE 14 MG/24 HOURS TOPICAL PATCH TD SCH (09:51)
[2022-01-05] MEDS: PRENATAL VITAMINS W/ FOLIC ACID TABLET (FP) PO SCH (09:52)
== END 2022-01-05 10:10 | disposition home or self-care (01) | DRG 897 ==
LOC: YASAS 13:34 → Y3N 16:33
PROVIDERS: ADMIT Allergy & Immunology; ATTEND Surgery
PROC: HZ2ZZZZ Detoxification Services for Substance Abuse Treatment (ICD-10-PCS; principal; 2022-01-01)
DX: F11.23 Opioid dependence with withdrawal (principal); F17.210 Nicotine dependence, cigarettes, uncomplicated; F41.1 Generalized anxiety disorder; E78.00 Pure hypercholesterolemia, unspecified; I10 Essential (primary) hypertension; E11.9 Type 2 diabetes mellitus without complications; Z79.84 Long term (current) use of oral hypoglycemic drugs; Z86.11 Personal history of tuberculosis
CPT/HCPCS: 36415; 71046-TC-FY; 80053; 82962; 85027; 86780; 87389; 93005; 93010; C9803-CS; U0003; U0005